=== PATIENT | male | born 1970 | race Caucasian/White ===

== ENCOUNTER 2019-02-28 15:11 | Emergency (ER) | payer BC ==
[2019-02-28 15:24] VITALS: TEMP 97.6
[2019-02-28 15:39] LABS: BASOPHILS % (AUTO) 1 % (0-3); EOSINOPHILS % (AUTO) 5 % (0-9); HEMATOCRIT 44 % (39-53); HEMOGLOBIN 14.6 gm/dl (13.5-17.7); LYMPHOCYTES % (AUTO) 28.4 % (10-50); MEAN CORPUSCULAR HGB CONC 33.1 gm/dl (32.0-36.0); MEAN CORPUSCULAR VOLUME 91 fL (80-100); MONOCYTES % (AUTO) 15.4 % (0-12); NEUTROPHILS % (AUTO) 50.3 % (37-80)
[2019-02-28 15:44] LABS: APPEARANCE,URINE Clear; BILIRUBIN,URINE NEGATIVE (NEGATIVE); COLOR,URINE Yellow; GLUCOSE, URINE (UA) NEGATIVE (NEGATIVE); KETONES,URINE NEGATIVE (NEGATIVE); LEUKOCYTE ESTERASE ,URINE NEGATIVE (NEGATIVE); NITRATE,URINE NEGATIVE (NEGATIVE); OCCULT BLOOD,URINE NEGATIVE (NEG-TRACE); UROBILINOGEN,URINE 0.2 (0.2-1.0 EU)
[2019-02-28 15:54] LABS: ALBUMIN 4.1 gm/dl (3.4-5.0); BILIRUBIN,TOTAL 0.3 mg/dl (0.2-1.0); CALCIUM 8.5 mg/dl (8.5-10.1); CARBON DIOXIDE 27.1 mEq/L (21-32); CREATININE 1.08 mg/dl (0.80-1.30); POTASSIUM 4.4 mMol/L (3.5-5.1); TOTAL PROTEIN 7.1 gm/dl (6.4-8.2)
[2019-02-28] MEDS ORDERED: ONDANSETRON HCL 4 MG/2 ML SOL ONE (15:58)
[2019-02-28] MEDS ORDERED: ONDANSETRON HCL 4 MG/2 ML SOL IV ONE (16:01)
[2019-02-28 16:03] LABS: AMPHETAMINES NEGATIVE (NEGATIVE); BACTERIA 1+ (< 1+); BARBITUATES NEGATIVE (NEGATIVE); BENZODIAZEPINES NEGATIVE (NEGATIVE); CANNABINOL(THC) NEGATIVE (NEGATIVE); COCAINE(COC) NEGATIVE (NEGATIVE); CRYSTALS NEGATIVE (0-3 AVE/HPF); EPITHELIAL CELLS 0-1 (SQUAMOUS); METHADONE NEGATIVE (NEGATIVE); METHAMPHETAMINES NEGATIVE (NEGATIVE); OPIATES(OPI) NEGATIVE (NEGATIVE); OXYCODONE(OXY) NEGATIVE (NEGATIVE); PROPOXYPHENE(PPX) NEGATIVE (NEGATIVE); RBC,URINE 0-2 (0-3AV/HPF); TRICYCLIC ANTIDEPRESSANTS NEGATIVE (NEGATIVE); WBC,URINE 0-2 (0-5AV/HPF)
[2019-02-28 18:54] VITALS: BP 120/78; PULSE 78; RESP 21; O2SAT 99
== END 2019-02-28 17:35 | disposition home or self-care (01) ==
LOC: ED 15:11
DX: R56.9 Unspecified convulsions (principal); R40.2362 Coma scale, best motor response, obeys commands, at arrival to emergency department; R40.2142 Coma scale, eyes open, spontaneous, at arrival to emergency department; R40.2252 Coma scale, best verbal response, oriented, at arrival to emergency department; E86.0 Dehydration
CPT/HCPCS: 70450; 80053; 80305; 81001; 85025; 93005; 96374; 99284; 99285; J2405